=== PATIENT | female | born 1970 | race African-American/Black ===

== ENCOUNTER → 2021-02-02 11:34 | Outpatient (CLI) | payer OTHER, SELFPAY ==
--- NOTE | 2021-02-02 11:45 | CT_ITS ---
PROCEDURE: CT ABDOMEN PELVIS WO/W CON CLINICAL INDICATION: r/o Cancer-Pelvic Mass Pelvic mass, abnormal uterine bleeding COMPARISON: No exams were available for comparison TECHNIQUE: CT of the abdomen and pelvis with multiplanar 3D MIP reformations. Performed with and without IV contrast. Dose modulation, automated exposure control, and/or iterative reconstruction were used for dose reduction. Contast: 75 ml Isovue 370 FINDINGS: Lung bases are clear. 6 mm hypodensity left hepatic lobe. 8 mm hypodensity right hepatic lobe inferiorly. 10 mm hypodensity right hepatic lobe. Liver lesions are indeterminate possibly related to cyst. There is an area of hepatic enhancement involving the right hepatic lobe image 19 measuring 10 mm. The spleen is unremarkable. Right adrenal gland has an unremarkable appearance. Left adrenal gland is somewhat enlarged but maintains an adrenal form shape. Unremarkable pancreas somewhat obscured by the overlying unopacified stomach and small bowel. There is severe bilateral hydronephrosis and hydroureter secondary to large pelvic mass. There is a large enhancing complex pelvic mass. This mass is heterogeneously enhancing and appears to be epicentered within the uterus region and extends from the base of the pelvis cephalad for a length of approximately 20 cm and measuring 8.6 cm in AP dimension. It appears that the mass arises from the inferior aspect of the uterus or cervix extending cephalad with a heterogeneous appearance while the upper aspect of the mass involves the fundus of the uterus with more solid appearance. There is an air-fluid level in the lower aspect of this mass possibly within the vagina. Diffuse enhancement noted of the peripheral and central aspect of the mass inferiorly with prominent periuterine veins noted. In addition, there is a large mostly cystic mass involving the left ileo psoas muscle measuring 15 cm cephalad caudad, 10 cm AP, and 6.8 cm transverse. This mass begins at the level of the umbilicus and extends inferiorly in the ileo psoas muscle to the level of the left hip. There are small nodes in the left inguinal region. The large pelvic mass is compressing the urinary bladder and causing severe bilateral hydronephrosis secondary to distal ureteral obstruction from compression. The mass is also displacing small bowel out of the pelvis with compression also upon the sigmoid colon. No acute bony findings are evident.. 10 minutes delayed images are obtained with no contrast yet in the urinary bladder. IMPRESSION: Large complex pelvic mass which appears to arise from the lower uterine segment/cervix region extending superiorly with heterogeneous enhancement with the superior aspect of the uterus also enlarged with more solid appearance. There is also a large cystic mass involving the left psoas and iliopsoas muscle. These findings are consistent with malignancy. Uterine sarcoma is a consideration with metastasis to the left ileo psoas muscle. There is an air-fluid level in the lower aspect of the mass/vaginal region which could be due to underlying necrosis with abscess involvement Severe bilateral hydroureteronephrosis secondary to the pelvic masses Dictated by: Nnamdi Draper MD 02/02/2021 12:47 Nnamdi Draper MD in [facility] 02/02/2021 12:47
== END ==
PROVIDERS: PCP Emergency Medicine; Visit Provider Nurse Practitioner Obstetrics & Gynecology
DX: R19.00 Intra-abdominal and pelvic swelling, mass and lump, unspecified site (principal); N85.2 Hypertrophy of uterus; N93.8 Other specified abnormal uterine and vaginal bleeding; R63.4 Abnormal weight loss; Z86.718 Personal history of other venous thrombosis and embolism
CPT/HCPCS: 74178; Q9967